=== PATIENT | male | born 1940 ===

== ENCOUNTER 2018-03-24 10:46 | Outpatient (CLI) | payer OTHER ==
[~2018-03-24] VITALS: Ht 180.3 cm; Wt 103.9 kg
== END 2018-03-24 11:00 | disposition home or self-care (01) ==
LOC: OFIC 805 10:46
DX: H90.3 Sensorineural hearing loss, bilateral (principal); H93.13 Tinnitus, bilateral; H61.23 Impacted cerumen, bilateral